=== PATIENT | male | born 1990 | race Hispanic/Latino ===

== ENCOUNTER 2016-12-28 23:58 | Emergency (ER) | payer OTHER ==
[2016-12-29 00:01] VITALS: RESP 16; TEMP 98; O2SAT 100
[2016-12-29] MEDS ORDERED: Sodium Chloride 0.9% 1,000 ML IV STA (00:05)
--- NOTE | 2016-12-29 01:18 | ED PDOC ---
HPI: Allergic Reaction Time Seen by Provider: 12/29/16 00:05 Chief Complaint (Nursing): Allergic Reaction Chief Complaint (Provider): Allergic Reaction History/Exam Limitations: no limitations Onset/Duration Of Symptoms: Hrs Current Symptoms Are (Timing): Still Present Context: Food. denies: Travel, Recent Trauma Possible Cause: Food ((Carrots)) Associated Symptoms: Skin Rash, Swelling ((+)Facial Swelling, Nasal congestion) , Redness. denies: Trouble Swallowing, Chest Pain Home/EMS Treatment: Benadryl ((4 tablets)) Severity: Mild Additional Complaint(s): 26 y/o male patient presenting to the ED with an allergic reaction. Patient states he ate four carrots earlier today and suddenly developed nasal congestion , facial swelling, redness and rash. Patient denies trouble swallowing, or shortness of breath. Patients states he took four tablets of Benadryl which provided some relief. 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 Past Medical History Reviewed: Historical Data, Nursing Documentation, Vital Signs Vital Signs: Last Vital Signs Temp 98 F 12/29/16 00:00 Pulse 96 H 12/29/16 00:00 Resp 16 12/29/16 00:00 BP 159/93 H 12/29/16 00:00 Pulse Ox 100 12/29/16 00:00 - Medical History PMH: No Chronic Diseases - Family History Family History: States: Unknown Family Hx - Social History Current smoker - smoking cessation education provided: No Alcohol: None Drugs: Denies - Home Medications Home Medications: Ambulatory Orders Medication Instructions Recorded Famotidine [Pepcid] 20 mg PO Q12 #14 tab 12/29/16 Methylprednisolone [Medrol Dosepak] 4 mg PO ASDIR #1 pkg 12/29/16 - Allergies Allergies/Adverse Reactions: Allergies Allergy/AdvReac Type Severity Reaction Status Date / Time birch Allergy ITCHING Verified 12/29/16 00:02 carrot Allergy RASH Verified 12/29/16 00:02 Review of Systems ROS Statement: Except As Marked, All Systems Reviewed And Found Negative Constitutional: Negative for: Fever ENT: Positive for: Nose Congestion, Other ((+)Redness, Facial Swelling). Negative for: Throat Pain, Throat Swelling Cardiovascular: Negative for: Chest Pain Respiratory: Negative for: Shortness of Breath Gastrointestinal: Negative for: Nausea, Vomiting Skin: Positive for: Rash Physical Exam - Reviewed Nursing Documentation Reviewed: Yes Vital Signs Reviewed: Yes - Physical Exam Appears: Positive for: Non-toxic, No Acute Distress Head Exam: Positive for: ATRAUMATIC, NORMAL INSPECTION, NORMOCEPHALIC Skin: Positive for: Normal Color, Warm, Dry, Rash ((+)Diffuse erythematous ortactrial.) Eye Exam: Positive for: Other ((+)Periorbital Edema Bilaterally.) ENT: Positive for: Nasal Congestion Neck: Positive for: Normal, Painless ROM, Supple Cardiovascular/Chest: Positive for: Regular Rate, Rhythm. Negative for: Murmur Respiratory: Positive for: Normal Breath Sounds. Negative for: Respiratory Distress Extremity: Positive for: Normal ROM Neurologic/Psych: Positive for: Alert, Oriented. Negative for: Motor/Sensory Deficits - ECG O2 Sat by Pulse Oximetry: 100 (RA) Pulse Ox Interpretation: Normal - Critical Care Total Time (In Min): 30 Disposition - Clinical Impression Clinical Impression: Allergic reaction - Patient ED Disposition Is Patient to be Admitted: No - Disposition Disposition: Routine/Home Disposition Time: 02:00 Condition: STABLE Prescriptions: Famotidine [Pepcid] 20 mg PO Q12 #14 tab Methylprednisolone [Medrol Dosepak] 4 mg PO ASDIR #1 pkg Instructions: General Allergic Reaction (ED) Medical Decision Making - Medication Orders Current Medication Orders: Discontinued Medications Famotidine (Pepcid) 40 mg IV STAT STA Stop: 12/29/16 00:06 Last Admin: 12/29/16 00:24 Dose: 40 mg Famotidine (Pepcid) Confirm Administered Dose 40 mg .ROUTE .STK-MED ONE Stop: 12/29/16 00:18 Sodium Chloride (Sodium Chloride 0.9%) 1,000 mls @ 1,000 mls/hr IV .Q1H STA Stop: 12/29/16 01:04 Last Admin: 12/29/16 00:24 Dose: 1,000 mls/hr Methylprednisolone (Solu-Medrol) 125 mg IVP STAT STA Stop: 12/29/16 00:06 Last Admin: 12/29/16 00:24 Dose: 125 mg Methylprednisolone (Solu-Medrol) Confirm Administered Dose 125 mg .ROUTE .STK- MED ONE Stop: 12/29/16 00:19 Medical Decision Making Medical Decision Making: Time: 4 Initial impression: Acute allergic reaction Initial plan: --Famotidine --methylPREDNIsolone --Sodium Chloride --Heplock Insertion 0200: Re-evaluation/Discharge Market improvement in symptoms. Patient stable for discharge and will continue to take home medications of Zyrtec and Singulair. Discussed results and plan with patient who expresses understanding. Counseling was provided regarding the diagnosis and prognosis. All questions answered and there is agreement with the plan to discharge home with instructions. Patient stable for discharge; Return if symptoms persist or worsen. Diagnosis: Acute Allergic Reaction Scribe Attestation: Documented by Ale Hathaway, acting as a scribe for Jay Ambriz MD. Scribe Attestation: All medical record entries made by the Scribe were at my direction and personally dictated by me. I have reviewed the chart and agree that the record accurately reflects my personal performance of the history, physical exam, medical decision making, and the department course for this patient. I have also personally directed, reviewed, and agree with the discharge instructions and disposition.
[2016-12-29 02:14] VITALS: BP 125/80; PULSE 81
== END 2016-12-29 02:22 | disposition home or self-care (01) ==
LOC: H.ER 23:58
DX: T78.40XA Allergy, unspecified, initial encounter (principal)